=== PATIENT | female | born 1950 | race Hispanic/Latino ===

== ENCOUNTER 2019-01-18 07:00 | Inpatient (IN) | payer BC, MEDICARE ==
--- NOTE | 2019-01-16 14:10 | Anesthesia Consultation ---
Anesthesia Consult and Med Hx Date of service: 01/18/19 - Airway Anesthetic Teeth Evaluation: Good, Partials, Edentulous (upper) ROM Head & Neck: Inadequate Mental/Hyoid Distance: Adequate Mallampati Class: Class III Intubation Access Assessment: Possibly Difficult - Pre-Operative Health Status ASA Pre-Surgery Classification: ASA3 Proposed Anesthetic Plan: General, Spinal (SAB; GA if needed) Nerve Block: AC - Pulmonary Hx Smoking: Yes (STOPPED 04/18/2017) Hx Sleep Apnea: No (KEEGAN PRE SCREEN HIGH RISK) - Cardiovascular System Hx Hypertension: Yes (X 5 YRS) - Central Nervous System Hx Psychiatric Problems: Yes (Anxiety and depression) - Endocrine Hx Renal Disease: Yes - Hematic Hx Anemia: Yes (NOT RECENT) - Other Systems Hx Cancer: No - Additional Comments Anesthesia Medical History Comments: +Medical clearance. five level neck surgery. lap band. failed SAB with PKA
[~2019-01-18 07:00] MED LIST: BUPIVACAINE/PF (0.25%) 2.5 MG/ML 30 ML VIAL INFILTRATI ONE; CELECOXIB 200 MG CAP PO NR; KETOROLAC 10 MG TAB PO ONE; LACTATED RINGERS 1,000 ML ONE; MORPHINE 10 MG/1 ML INJ IM ONE; OXYCHLOROSENE 2 GM POWDER IR ONE; SODIUM CHLORIDE 0.9% 50 ML VIAL INFILTRATI ONE; ceFAZolin/STERILE WATER 2 GM/20 ML SYRINGE IV NR
[2019-01-18] MEDS: LACTATED RINGERS 1,000 ML IV SCH ×2 (07:35→22:11)
[2019-01-18] MEDS: GABAPENTIN 300 MG CAP PO NR ×4 (07:35→22:03)
[2019-01-18] MEDS ORDERED: MORPHINE 10 MG/1 ML INJ ONE (07:48)
[2019-01-18] MEDS ORDERED: SODIUM CHLORIDE 0.9% 300 ML ONE (07:49)
[2019-01-18] MEDS ORDERED: BUPIVACAINE-EPINEPHRINE/PF 0.25%-1:200,000 (30 ML) VIAL INFILTRATI ONE (07:49)
[2019-01-18] MEDS ORDERED: OXYCHLOROSENE 2 GM POWDER IR ONE ×2 (07:49→10:55)
[2019-01-18] MEDS ORDERED: BACITRACIN 50,000 UNIT VIAL ONE (07:49)
[2019-01-18] MEDS ORDERED: KETOROLAC 30 MG/1 ML INJ ONE (07:50)
[2019-01-18] MEDS ORDERED: TRANEXAMIC ACID 1,000 MG/10 ML ONE (07:51)
[2019-01-18] MEDS ORDERED: BUPIVACAINE/PF (0.25%) 2.5 MG/ML 30 ML VIAL INFILTRATI ONE ×2 (07:51→11:00)
[2019-01-18] MEDS ORDERED: POLYMYXIN B SULFATE 500,000 UNIT VIAL IV ONE ×2 (07:51→10:11)
[2019-01-18] MEDS ORDERED: SODIUM CHLORIDE P/F VIAL 10 ML 10 ML ONE (07:52)
[2019-01-18] MEDS ORDERED: LIDOCAINE MPF (2%) 20 MG/1 ML VIAL 5 ML ONE ×2 (08:10→11:48)
[2019-01-18] MEDS ORDERED: fentaNYL 100 MCG/2 ML INJ ONE (08:10)
[2019-01-18] MEDS ORDERED: MIDAZOLAM 2 MG/2 ML INJ ONE ×2 (08:10→09:05)
[2019-01-18] MEDS ORDERED: ROCURONIUM 50 MG/5 ML INJ IV ONE (08:10)
[2019-01-18] MEDS ORDERED: PROPOFOL 200 MG/20 ML VIAL IV ONE ×3 (08:11→10:50)
[2019-01-18] MEDS ORDERED: HYDROmorphone 1 MG/1 ML INJ IV PRN (08:13)
[2019-01-18] MEDS ORDERED: fentaNYL 100 MCG/2 ML INJ IV PRN (08:13)
[2019-01-18] MEDS ORDERED: ONDANSETRON 4 MG/2 ML INJ IV PRN ×2 (08:13→12:09)
--- NOTE | 2019-01-18 08:13 | Anesthesia Day of Surgery ---
Anesthesia Day of Surgery - Day of Surgery Patient Examined: Yes Patient H&P Reviewed: Yes Patient is NPO: Yes
[2019-01-18] MEDS ORDERED: EPINEPHrine/PF (1:1,000) 1 MG/1 ML INJ ONE (08:59)
[2019-01-18] MEDS ORDERED: SODIUM CHLORIDE 0.9% 100 ML IVPB IV ONE (09:22)
[2019-01-18] MEDS ORDERED: TRANEXAMIC ACID 1,000 MG/10 ML IV ONE (09:28)
[2019-01-18] MEDS ORDERED: BACITRACIN 50,000 UNIT VIAL IR ONE (10:11)
[2019-01-18] MEDS ORDERED: SODIUM CHLORIDE 0.9% IRRIG SOLN 2000 ML IR ONE (10:11)
[2019-01-18] MEDS ORDERED: SODIUM CHLORIDE 0.9% 50 ML VIAL INFILTRATI ONE (11:00)
[2019-01-18] MEDS ORDERED: MORPHINE 10 MG/1 ML INJ IM ONE (11:00)
[2019-01-18] MEDS ORDERED: KETOROLAC 10 MG TAB PO ONE (11:00)
[2019-01-18] MEDS ORDERED: PHENYLEPHRINE 10 MG/1 ML INJ SDV ONE (11:19)
[2019-01-18] MEDS ORDERED: MAGNESIUM HYDROXIDE (MOM) ORAL LIQD UDC PO PRN (12:09)
--- NOTE | 2019-01-18 13:18 | XRay Report ---
LEFT KNEE 2 VIEW(S) INDICATION / CLINICAL INFORMATION: POSTOP TKA COMPARISON: None available. FINDINGS: Knee arthroplasty has been performed with satisfactory postoperative radiograph appearance. Signer Name: Cyril Mckeon MD Signed: 01/18/2019 1:13 PM Workstation Name: [id number]
--- NOTE | 2019-01-18 13:40 | Post Anesthesia Evaluation ---
- Post Anesthesia Evaluation Patient Participated: Yes Airway Patent: Yes Stable Respiratory Function: Yes Nausea/Vomiting: No Temp > 96.8F: Yes Pain Manageable: Yes Adequeate Hydration: Yes Anesthesia Complications: No Block Receding Appropriately: Not Applicable Patient on Ventilator: No
[2019-01-18] MEDS: HYDROcodone/ACETAMINOPHEN 10-325MG TAB PO PRN (14:34)
[2019-01-18] MEDS: GABAPENTIN 300 MG CAP PO SCH ×2 (14:35→22:03)
[2019-01-18] MEDS ORDERED: MORPHINE 4 MG/1 ML INJ IV PRN ×2 (15:15→18:59)
--- NOTE | 2019-01-18 15:57 | History and Physical Report ---
History of Present Illness Date of admission: 01/18/19 07:00 Chief complaint: My knee hurts History of present illness: 68 YO Female with Obesity Hypoventilation Syndrome, HTN, Anxiety, Depression, Nicotine Dependence, DJD, Chronic Pain admitted directly at the request of Dr. Moore for surgical intervention. Pt seen and evaluated upon arrival to her room. Pt resting comfortably. Pt denies fever, chills, CP, Palpitations, NVD, Trauma, Productive cough, Skin Rash, or recent ill contacts. No reported nursing events. Past History Past Medical History: hypertension, other (Ansiety, depression, ) Past Surgical History: Other (Lap Band, Neck Surgery) Social history: single, smoking Family history: hypertension Medications and Allergies Allergies Allergy/AdvReac Type Severity Reaction Status Date / Time Sulfa (Sulfonamide Allergy Hives Verified 01/10/19 15:22 Antibiotics) Home Medications Medication Instructions Recorded Confirmed Last Taken Type Calcium Carb,Gluc/Mag Ox,Gluc 1 each PO DAILY 01/10/19 01/18/19 01/16/19 08:00 History [Calcium Magnesium Caplet] Cholecalciferol Vit D3 [Vitamin D3 1,000 unit PO QDAY 01/10/19 01/18/19 01/16/19 08:00 History 1,000 UNIT TAB] Escitalopram Oxalate [Lexapro] 20 mg PO DAILY 01/10/19 01/10/19 01/18/19 05:00 History Pravastatin [Pravachol] 20 mg PO QHS 01/10/19 01/18/19 01/18/19 05:00 History hydroCHLOROthiazide [HCTZ] 25 mg PO QDAY 01/10/19 01/10/19 01/18/19 05:00 History Meloxicam [Mobic] 15 mg PO PRN 01/18/19 01/18/19 01/16/19 08:00 History Active Meds: Active Medications Acetaminophen/Hydrocodone Bitart ([place] 10/325) 1 each PO Q4H PRN PRN Reason: Pain, Moderate (4-6) Last Admin: 01/18/19 14:34 Dose: 1 each Documented by: Apixaban (Eliquis) 2.5 mg PO Q12HR ASHLEY; Protocol Stop: 01/30/19 21:59 Cefazolin Sodium (Ancef/Sterile Water 2 Gm/20 Ml) 2 gm IV PREOP NR Stop: 01/18/19 23:59 Celecoxib (Celebrex) 200 mg PO PREOP NR Stop: 01/18/19 23:00 Last Admin: 01/18/19 07:35 Dose: 200 mg Documented by: Cholecalciferol (Vitamin D3) 1,000 unit PO QDAY [facility] Escitalopram Oxalate (Lexapro) 20 mg PO DAILY [facility] Fentanyl (Sublimaze) 50 mcg IV Q5MIN PRN PRN Reason: Pain , Severe (7-10) Stop: 01/18/19 22:00 Gabapentin (Neurontin) 300 mg PO PREOP NR Stop: 01/18/19 23:00 Last Admin: 01/18/19 07:35 Dose: 300 mg Documented by: Gabapentin (Neurontin) 300 mg PO Q8HR ASHLEY Last Admin: 01/18/19 14:35 Dose: 300 mg Documented by: Hydrochlorothiazide (Hctz) 25 mg PO QDAY [facility] Hydromorphone HCl (Dilaudid) 0.5 mg IV Q10MIN PRN PRN Reason: Pain , Severe (7-10) Stop: 01/18/19 22:00 Lactated Ringer's (Lactated Ringers) 1,000 mls @ 100 mls/hr IV DIRECT ASHLEY Last Admin: 01/18/19 07:35 Dose: 100 mls/hr Documented by: Cefazolin Sodium 2 gm/ Sodium (Chloride) 100 mls @ 200 mls/hr IV Q8H [facility]; Protocol Stop: 01/19/19 10:29 Magnesium Hydroxide (Milk Of Magnesia) 30 ml PO Q4H PRN PRN Reason: Constipation Miscellaneous Medication (Calcium Carb,Gluc/Mag Ox,Gluc [Calcium Magnesium Caplet]) 1 each PO DAILY [facility] Morphine Sulfate (Morphine) 4 mg IV Q6H PRN PRN Reason: Pain , Severe (7-10) Last Admin: 01/18/19 15:41 Dose: 4 mg Documented by: Ondansetron HCl (Zofran) 4 mg IV ONCE PRN PRN Reason: Nausea And Vomiting Ondansetron HCl (Zofran) 4 mg IV Q8H PRN PRN Reason: Nausea And Vomiting Pravastatin Sodium (Pravachol) 20 mg PO QHS [facility] Sodium Chloride (Sodium Chloride Flush Syringe 10 Ml) 10 ml IV PRN NR Stop: 01/19/19 12:59 Review of Systems Constitutional: no weight loss, no weight gain, no fever, no chills Ears, nose, mouth and throat: no ear pain, no ear discharge, no decreased hearing, no nose pain Breasts: no change in shape, no swelling, no mass Cardiovascular: no chest pain, no orthopnea, no rapid/irregular heart beat, no edema, no syncope Respiratory: no cough, no cough with sputum, no excessive sputum, no hemoptysis, no shortness of breath, no dyspnea on exertion Gastrointestinal: no abdominal pain, no nausea, no vomiting, no diarrhea, no constipation, no change in bowel habits, no hematemesis Genitourinary Female: no pelvic pain, no flank pain, no menorrhagia, no dysuria, no urinary frequency, no urgency, no stress incontinence, no post void dribbling Rectal: no pain, no incontinence, no bleeding Musculoskeletal: shooting leg pain, morning stiffness, arthritis, no neck pain, no arm numbness/tingling, no hot joints, no atrophy, no fractures Integumentary: no rash, no pruritis, no redness, no sores, no wounds Neurological: no paralysis, no weakness, no parathesias, no seizures, no syncope, no tremors Psychiatric: no anxiety, no memory loss, no hypersomnia, no suicidal ideation, no disorientation Endocrine: no cold intolerance, no heat intolerance, no polyphagia, no polydipsia, no excessive sweating Hematologic/Lymphatic: no easy bruising, no easy bleeding, no lymphadenopathy, no lymphedema Allergic/Immunologic: no urticaria, no allergic rhinitis, no wheezing, no persistent infections, no anaphylaxis Exam - Constitutional Vitals: Temp Pulse Resp BP Pulse Ox 97.9 F 72 20 134/55 97 01/18/19 13:39 01/18/19 13:39 01/18/19 13:39 01/18/19 13:39 01/18/19 13:39 General appearance: Present: mild distress - EENT Eyes: Present: PERRL ENT: hearing intact, clear oral mucosa - Neck Neck: Present: supple, normal ROM - Respiratory Respiratory effort: normal Respiratory: bilateral: CTA - Cardiovascular Heart Sounds: Present: S1 & S2. Absent: rub, click - Extremities Extremities: pulses symmetrical, No edema Peripheral Pulses: within normal limits - Abdominal General gastrointestinal: Present: soft, non-tender, non-distended, normal bowel sounds Female genitourinary: Present: normal - Integumentary Integumentary: Present: clear, warm, dry - Musculoskeletal Musculoskeletal: gait normal, strength equal bilaterally - Psychiatric Psychiatric: appropriate mood/affect, intact judgment & insight - Neurologic Neurologic: CNII-XII intact, moves all extremities Assessment and Plan - Patient Problems (1) DJD (degenerative joint disease) Current Visit: Yes Status: Acute Qualifiers: Laterality: left Plan to address problem: Ortho consulted, Surgical intervention as per ortho team, PT consulted (2) HTN (hypertension) Current Visit: Yes Status: Acute Qualifiers: Hypertension type: essential hypertension Qualified Code(s): I10 - Essential (primary) hypertension Plan to address problem: Monitor bp q shift, continue medical management. (3) Nicotine dependence unspecified, with withdrawal Current Visit: Yes Status: Acute Qualifiers: Nicotine product type: cigarettes Qualified Code(s): F17.213 - Nicotine dependence, cigarettes, with withdrawal Plan to address problem: Smoking cessation counseling, supportive care. (4) Obesity hypoventilation syndrome Current Visit: Yes Status: Acute Plan to address problem: Supplemental oxygen, nebulizer therapy, NIPPV as clinically indicated, pulse oximetry, incentive spirometry, early ambulation, pulmonary toilet. (5) DVT prophylaxis Current Visit: Yes Status: Acute Plan to address problem: SCD to BLE while in bed.
--- NOTE | 2019-01-18 16:26 | Operative Report ---
IDENTIFICATION: A 68-year-old female. PREOPERATIVE DIAGNOSIS: Severe advanced osteoarthritis of the left knee joint. POSTOPERATIVE DIAGNOSES: 1. Severe advanced osteoarthritis of the left knee joint. 2. Morbid obesity. 3. Synovial hypertrophy and synovial proliferation. PROCEDURE PERFORMED: 1. Left total knee replacement. 2. Partial synovectomy, left knee joint. COMPLICATIONS: None. BLOOD LOSS: Less than approximately 50 mL. IMPLANTS USED: Bravo [employer] Nephew Legion Oxinium femoral component, size 6 femur, tibial tray size 4, prolong Poly-S. Polyethylene liner posterior stabilized 9 mm highly cross-linked polyethylene articular insert. Patella 29 mm, 3 post 7.5 mm thick. Tibia supplemented with short 10 x 70 stubby stem from the baseplate. BRIEF HISTORY: The patient had a painful left knee arthritic left knee, failed conservative treatment, opted to undergo surgical intervention. Risks, benefit discussed, informed consent obtained, brought to the hospital for the above procedure. DETAILS OF THE OPERATIVE REPORT: The patient was taken to the operating room. After smooth spinal anesthesia, all the bony prominences were carefully padded, placed supine on the operating table. Thigh tourniquet was placed. Left knee and left lower extremity prepped and draped in sterile fashion. Leg elevated, Esmarch used and tourniquet inflated to 350 mmHg. The patient was given 2 grams Ancef half an hour before the procedure and a gram of TXA before the incision. Longitudinal incision made over anterior aspect of the knee, exposing extensive mechanism. Arthrotomy performed. Patella displaced laterally findings revealed severe advanced degenerative arthritis, tricompartmental. Subperiosteal dissection was continued around the proximal medial tibia as necessary. Soft tissue release was performed to correct the fixed angular deformity. Drill was used to open the femoral canal. Distal intramedullary femoral cutting guide was placed. Distal femur resected 5-degree valgus angle. Epicondylar access apex determined. Femoral sizing guide was placed, appropriate components selected. Anterior, posterior condyles were then resected with oscillating saw. Extramedullary tibial cutting guide was placed, proximal tibia resected perpendicular to the long axis of tibia. Lamina spreaders placed between femur and tibia. Arthritic ACL and PCL ligaments were removed. Medial and lateral meniscectomy performed. Gap balancing was then performed by doing appropriate release on the medial side. Once the gap balancing was done and equal on with 9 spacer and equal in flexion, extension, good rectangular space was achieved. Tibia was then sized prepared by tibial reaming and broach system by placing the tibial tray in proper position, proper external rotation. We also prepared for a small stubby stem on the tibia given her morbid obesity. Two offset ____ on metaphyseal bone. We then prepared for the femur box for the PS femur through Bravo and Nephew trial by reaming and punch technique. Patella was sized to a 22 mm and then prepared by patellar reaming system, prepared for three post-patella. Post-patellar thickness 22.5. Osteophytes around the patella. Synovium around the patella was removed as well. Patella tracked well. The knee was ____ with 9 poly. We had full extension, full flexion, stable throughout range of motion. No impingement, no dislocation, stable throughout range of motion. Patella tracked central throughout range of motion and stable knee throughout range of motion. Trial components were removed, thoroughly washed the knee area with antibiotic-soaked normal saline followed by normal saline. The tibia was cemented first set in proper position, proper external rotation and packed in place. Excess cement was removed. Femur was then cemented in proper position, proper external rotation and packed in place. Excess cement was removed. Trial liner was then placed, cementing the patella performed, compressed in place. Excess cement removed. Once the cement was hardened, real tibial articulating surface was implanted and locked in place. Knee again moved through range of motion and found to be extremely stable. Patella tracked central. Tourniquet released. Hemostasis achieved. No active bleeder as such. Thorough washing was performed with antibiotic-soaked normal saline followed by normal saline followed by Clorpactin irrigation and arthrotomy was closed with 0 Vicryl sutures and #2 Quill sutures combination and subcutaneous tissue was closed in layers with 0 and 2-0 Vicryl interrupted sutures. Skin was closed with Monocryl. Aquacel dressing done. Lv wrap applied, drapes applied. The patient tolerated the procedure very well, shifted to recovery room in stable condition. Sponge and needle count was correct. JOB# [id number] SK/NTS
[2019-01-18] MEDS ORDERED: oxyCODONE /ACETAMINOPHEN 5-325MG TAB PO PRN (18:59)
[2019-01-18] MEDS ORDERED: MORPHINE 2 MG/1 ML INJ IV PRN (19:33)
[2019-01-18] MEDS ORDERED: CELECOXIB 200 MG CAP PO SCH (22:00)
[2019-01-18] MEDS: PRAVASTATIN 20 MG TAB PO SCH (22:01)
[2019-01-18] MEDS: APIXABAN 2.5 MG TAB PO SCH (22:01)
[2019-01-19] MEDS: GABAPENTIN 300 MG CAP PO SCH ×3 (05:15→22:42)
[2019-01-19] MEDS: HYDROcodone/ACETAMINOPHEN 10-325MG TAB PO PRN ×4 (05:22→22:42)
[2019-01-19 06:00] LABS: Hematocrit 36.6 % (30.3-42.9); Hemoglobin 11.9 gm/dl (10.1-14.3)
[2019-01-19 06:18] LABS: Calcium 8.2 mg/dL (8.4-10.2)
--- NOTE | 2019-01-19 08:03 | Progress Note ---
Assessment and Plan Assessment and plan: 68 YO Female with Obesity Hypoventilation Syndrome, HTN, Anxiety, Depression, Nicotine Dependence, DJD, Chronic Pain admitted directly at the request of Dr. Moore for surgical intervention. Past History Past Medical History: hypertension, other (Ansiety, depression, ) DJD (degenerative joint disease) of left knee, sp TKR mgt per ortho sx HTN (hypertension) Monitor bp q shift, continue medical management. Nicotine dependence unspecified, with withdrawal Smoking cessation counseling for 11 mins, supportive care. nicotine patches prn Acute hypoxic respiratory failure hypoxia after operation, may be due to anesthesia, continue supplemental oxygen DVT prophylaxis eliquis per surgeon cont PT, dispo, home with home PT and devices History Interval history: Left knee pain is improved, expected outcome after surgery Review of systems Constitutional: No fevers, no malaise, CVS: No chest pain, no orthopnea, no pedal edema GI: No abdominal pain, no diarrhea, no vomiting, no constipation Respiratory: No shortness of breath, no wheezing, no coughing She has been hypoxic, requiring oxygen Hospitalist Physical - Constitutional Vitals: Temp Pulse Resp BP Pulse Ox 98.3 F 80 16 154/77 95 01/19/19 04:47 01/19/19 04:47 01/19/19 04:47 01/19/19 04:47 01/19/19 07:40 General appearance: Present: mild distress - EENT Eyes: Present: PERRL ENT: hearing intact - Neck Neck: Present: supple - Respiratory Respiratory effort: normal Respiratory: bilateral: CTA - Cardiovascular Rhythm: regular Heart Sounds: Present: S1 & S2 - Extremities Extremities: no ischemia - Abdominal General gastrointestinal: soft - Integumentary Integumentary: Present: clear, warm - Psychiatric Psychiatric: appropriate mood/affect, cooperative - Neurologic Neurologic: CNII-XII intact, no focal deficits Results - Labs CBC & Chem 7: 01/19/19 05:12 01/19/19 05:12 Labs: Laboratory Last Values Hgb 11.9 gm/dl (10.1-14.3) 01/19/19 05:12 Hct 36.6 % (30.3-42.9) 01/19/19 05:12 Sodium 139 mmol/L (137-145) 01/19/19 05:12 Potassium 4.8 mmol/L (3.6-5.0) 01/19/19 05:12 Chloride 100.7 mmol/L (98-107) 01/19/19 05:12 Carbon Dioxide 27 mmol/L (22-30) 01/19/19 05:12 Anion Gap 16 mmol/L 01/19/19 05:12 BUN 24 mg/dL (7-17) H 01/19/19 05:12 Creatinine 1.0 mg/dL (0.7-1.2) 01/19/19 05:12 Estimated GFR 55 ml/min 01/19/19 05:12 BUN/Creatinine Ratio 24 % 01/19/19 05:12 Glucose 117 mg/dL (65-100) H 01/19/19 05:12 Calcium 8.2 mg/dL (8.4-10.2) L 01/19/19 05:12 Blood Type A NEGATIVE 01/18/19 07:20 Antibody Screen Negative 01/18/19 07:20 Active Medications - Current Medications Current Medications: Generic Name Dose Route Start Last Admin Trade Name Freq PRN Reason Stop Dose Admin Acetaminophen/Hydrocodone Bitart 1 each 01/18/19 12:14 01/19/19 05:22 [place] 10/325 PO 1 each Q4H PRN Administration Pain, Moderate (4-6) Apixaban 2.5 mg 01/18/19 22:00 01/18/19 22:01 Eliquis PO 01/30/19 21:59 2.5 mg Q12HR ASHLEY Administration Protocol Cholecalciferol 1,000 unit 01/19/19 10:00 Vitamin D3 PO QDAY [facility] Escitalopram Oxalate 20 mg 01/19/19 10:00 Lexapro PO DAILY ASHLEY Gabapentin 300 mg 01/18/19 14:00 01/19/19 05:15 Neurontin PO 300 mg Q8HR ASHLEY Administration Hydrochlorothiazide 25 mg 01/19/19 10:00 Hctz PO QDAY ASHLEY Lactated Ringer's 1,000 mls @ 100 mls/hr 01/17/19 11:00 01/18/19 22:11 Lactated Ringers IV 100 mls/hr DIRECT ASHLEY Administration Cefazolin Sodium 2 gm/ Sodium 100 mls @ 200 mls/hr 01/18/19 18:00 01/19/19 05:17 Chloride IV 01/19/19 10:29 Infused Q8H ASHLEY Infusion Protocol Magnesium Hydroxide 30 ml 01/18/19 12:09 Milk Of Magnesia PO Q4H PRN Constipation Miscellaneous Medication 1 each 01/19/19 10:00 Calcium Carb,Gluc/Mag Ox,Gluc [Calcium Magnesium Caplet] PO DAILY [facility] Morphine Sulfate 2 mg 01/18/19 19:33 01/19/19 06:23 Morphine IV 2 mg Q6H PRN Administration Pain, Moderate (4-6) Ondansetron HCl 4 mg 01/18/19 12:09 Zofran IV Q8H PRN Nausea And Vomiting Oxycodone/Acetaminophen 1 tab 01/18/19 18:59 Percocet 5/325 PO Q6H PRN Pain, Moderate (4-6) Pravastatin Sodium 20 mg 01/18/19 22:00 01/18/19 22:01 Pravachol PO 20 mg QHS ASHLEY Administration Sodium Chloride 10 ml 01/18/19 13:00 Sodium Chloride Flush Syringe 10 Ml IV 01/19/19 12:59 PRN NR
[2019-01-19] MEDS ORDERED: CALCIUM CARB GLUC PO SCH (10:00)
[2019-01-19] MEDS ORDERED: MAG OX GLUC PO SCH (10:00)
[2019-01-19] MEDS ORDERED: NON-FORMULARY EACH (Escitalopram Oxalate [Lexapro] 20 MG) PO SCH (10:00)
[2019-01-19] MEDS: hydroCHLOROthiazide 25 MG TAB PO SCH (10:10)
[2019-01-19] MEDS: CHOLECALCIFEROL (VIT D3) 1000 UNIT TAB PO SCH (10:10)
[2019-01-19] MEDS: ESCITALOPRAM 10 MG TAB PO SCH (10:10)
[2019-01-19] MEDS ORDERED: oxyCODONE /ACETAMINOPHEN 5-325MG TAB PO PRN (10:30)
[2019-01-19] MEDS ORDERED: HYDROmorphone 1 MG/1 ML INJ IV PRN (11:00)
[2019-01-19] MEDS: APIXABAN 2.5 MG TAB PO SCH ×2 (12:40→22:42)
--- NOTE | 2019-01-19 17:26 | Progress Note ---
Subjective Date of service: 01/19/19 Interval history: pod1, s/p tka Doing well. Pain under control Leg soft NT dressing dry NVI Giles in place, patient encouraged to walk, wean off folly Continunen PT/OT DVT eliquis DC once HH arrangemnets are made and once clear by medicine and PT. Once clear DC with TKA DC instruction sheet and with Eliquis Script. Objective Vital signs: Vital Signs - 12hr 01/19/19 01/19/19 01/19/19 07:40 08:19 11:14 Temperature 97.8 F 97.7 F Pulse Rate 83 88 Respiratory 20 20 Rate Blood Pressure 118/68 135/68 O2 Sat by Pulse 95 90 84 Oximetry 01/19/19 17:00 Temperature 98.8 F Pulse Rate 85 Respiratory 22 Rate Blood Pressure 147/68 O2 Sat by Pulse 97 Oximetry - Labs CBC & BMP: 01/19/19 05:12 01/19/19 05:12 Labs: Abnormal lab results 01/19/19 Range/Units 05:12 BUN 24 H (7-17) mg/dL Glucose 117 H (65-100) mg/dL Calcium 8.2 L (8.4-10.2) mg/dL
[2019-01-19] MEDS: PRAVASTATIN 20 MG TAB PO SCH (22:42)
[2019-01-20] MEDS: GABAPENTIN 300 MG CAP PO SCH ×3 (05:50→21:43)
[2019-01-20] MEDS: HYDROcodone/ACETAMINOPHEN 10-325MG TAB PO PRN ×3 (05:50→18:38)
[2019-01-20] MEDS: ESCITALOPRAM 10 MG TAB PO SCH (09:29)
[2019-01-20] MEDS: hydroCHLOROthiazide 25 MG TAB PO SCH (09:29)
[2019-01-20] MEDS: CHOLECALCIFEROL (VIT D3) 1000 UNIT TAB PO SCH (09:46)
[2019-01-20] MEDS: APIXABAN 2.5 MG TAB PO SCH ×2 (09:47→21:43)
--- NOTE | 2019-01-20 10:44 | Progress Note ---
Assessment and Plan Assessment and plan: 68 YO Female with Obesity Hypoventilation Syndrome, HTN, Anxiety, Depression, Nicotine Dependence, DJD, Chronic Pain admitted directly at the request of Dr. Mooer for surgical intervention. Past History Past Medical History: hypertension, other (Ansiety, depression, ) DJD (degenerative joint disease) of left knee, sp TKR mgt per ortho sx HTN (hypertension) Monitor bp q shift, continue medical management. Nicotine dependence unspecified, with withdrawal Smoking cessation counseling for 11 mins, supportive care. nicotine patches prn Acute hypoxic respiratory failure hypoxia after operation, may be due to anesthesia, continue supplemental oxygen obtain cxr DVT prophylaxis eliquis per surgeon cont PT, dispo, home with home PT and devices History Interval history: Left knee pain is improved, expected outcome after surgery Review of systems Constitutional: No fevers, no malaise, CVS: No chest pain, no orthopnea, no pedal edema GI: No abdominal pain, no diarrhea, no vomiting, no constipation Respiratory: No shortness of breath, no wheezing, no coughing She has been hypoxic, requiring oxygen Hospitalist Physical - Physical exam Narrative exam: General appearance: Present: mild distress - EENT Eyes: Present: PERRL ENT: hearing intact - Neck Neck: Present: supple - Respiratory Respiratory effort: normal Respiratory: bilateral: CTA - Cardiovascular Rhythm: regular Heart Sounds: Present: S1 & S2 - Extremities Extremities: no ischemia - Abdominal General gastrointestinal: soft - Integumentary Integumentary: Present: clear, warm - Psychiatric Psychiatric: appropriate mood/affect, cooperative - Neurologic Neurologic: CNII-XII intact, no focal deficits - Constitutional Vitals: Temp Pulse Resp BP Pulse Ox 98.1 F 84 20 164/73 91 01/20/19 07:05 01/20/19 07:05 01/20/19 07:05 01/20/19 07:05 01/20/19 07:05 General appearance: Present: mild distress Results - Labs CBC & Chem 7: 01/19/19 05:12 01/19/19 05:12 Labs: Laboratory Last Values Hgb 11.9 gm/dl (10.1-14.3) 01/19/19 05:12 Hct 36.6 % (30.3-42.9) 01/19/19 05:12 Sodium 139 mmol/L (137-145) 01/19/19 05:12 Potassium 4.8 mmol/L (3.6-5.0) 01/19/19 05:12 Chloride 100.7 mmol/L (98-107) 01/19/19 05:12 Carbon Dioxide 27 mmol/L (22-30) 01/19/19 05:12 Anion Gap 16 mmol/L 01/19/19 05:12 BUN 24 mg/dL (7-17) H 01/19/19 05:12 Creatinine 1.0 mg/dL (0.7-1.2) 01/19/19 05:12 Estimated GFR 55 ml/min 01/19/19 05:12 BUN/Creatinine Ratio 24 % 01/19/19 05:12 Glucose 117 mg/dL (65-100) H 01/19/19 05:12 Calcium 8.2 mg/dL (8.4-10.2) L 01/19/19 05:12 Blood Type A NEGATIVE 01/18/19 07:20 Antibody Screen Negative 01/18/19 07:20 Active Medications - Current Medications Current Medications: Generic Name Dose Route Start Last Admin Trade Name Freq PRN Reason Stop Dose Admin Acetaminophen/Hydrocodone Bitart 1 each 01/18/19 12:14 01/20/19 09:29 [place] 10/325 PO 1 each Q4H PRN Administration Pain, Moderate (4-6) Apixaban 2.5 mg 01/18/19 22:00 01/20/19 09:47 Eliquis PO 01/30/19 21:59 2.5 mg Q12HR ASHLEY Administration Protocol Cholecalciferol 1,000 unit 01/19/19 10:00 01/20/19 09:46 Vitamin D3 PO 1,000 unit QDAY ASHLEY Administration Escitalopram Oxalate 20 mg 01/19/19 10:00 01/20/19 09:29 Lexapro PO 20 mg DAILY ASHLEY Administration Gabapentin 300 mg 01/18/19 14:00 01/20/19 05:50 Neurontin PO 300 mg Q8HR ASHLEY Administration Hydrochlorothiazide 25 mg 01/19/19 10:00 01/20/19 09:29 Hctz PO 25 mg QDAY ASHLEY Administration Hydromorphone HCl 0.5 mg 01/19/19 11:00 Dilaudid IV Q3H PRN Pain , Severe (7-10) Lactated Ringer's 1,000 mls @ 100 mls/hr 01/17/19 11:00 01/18/19 22:11 Lactated Ringers IV 100 mls/hr DIRECT ASHLEY Administration Magnesium Hydroxide 30 ml 01/18/19 12:09 Milk Of Magnesia PO Q4H PRN Constipation Miscellaneous Medication 1 each 01/19/19 10:00 Calcium Carb,Gluc/Mag Ox,Gluc [Calcium Magnesium Caplet] PO DAILY ASHLEY Ondansetron HCl 4 mg 01/18/19 12:09 Zofran IV Q8H PRN Nausea And Vomiting Oxycodone/Acetaminophen 2 tab 01/19/19 10:30 Percocet 5/325 PO Q6H PRN Pain, Moderate (4-6) Pravastatin Sodium 20 mg 01/18/19 22:00 01/19/19 22:42 Pravachol PO 20 mg QHS ASHLEY Administration
--- NOTE | 2019-01-20 16:07 | Progress Note ---
Subjective Date of service: 01/20/19 Interval history: patient lying on bed comfortably. Knee feeels good. Pain under control with meds. Calf soft NT dressing dry No redness in surrounding skin. Slow with PT as per therapist. Noticed her O 2 sstas in 90/s. Recommend Incentive spirometer . Nasal O2. Stat CXR Inform medicine wilfredo. Nurse doing it now. Patient has No CP or SOB. HR less than 90's and Afebrile Continue PT/OT DVT prophylaxsis DC plan probably rehab ? Hold off Narcotics. Tylenol for pain. [place] only for severe pain prn q8. Objective Vital signs: Vital Signs - 12hr 01/20/19 01/20/19 01/20/19 04:51 04:52 04:53 Temperature 98.9 F Pulse Rate 86 83 82 Respiratory 20 Rate Blood Pressure 138/69 O2 Sat by Pulse 91 90 89 Oximetry 01/20/19 01/20/19 04:56 07:05 Temperature 98.1 F Pulse Rate 84 Respiratory 20 Rate Blood Pressure 164/73 O2 Sat by Pulse 92 91 Oximetry - Labs CBC & BMP: 01/19/19 05:12 01/19/19 05:12
--- NOTE | 2019-01-20 17:58 | XRay Report ---
CHEST 1 VIEW INDICATION / CLINICAL INFORMATION: low O2 sats. COMPARISON: None available. FINDINGS: SUPPORT DEVICES: None. HEART / MEDIASTINUM: Cardiac size is mildly enlarged. LUNGS / PLEURA: There is minimal interstitial pulmonary edema. The lungs are otherwise clear. There i s suggestion of right hilar mass, however. This may just represent a prominent pulmonary artery, but mass is not entirely excluded. No pneumothorax. ADDITIONAL FINDINGS: No significant additional findings. IMPRESSION: 1. Questionable right hilar mass versus enlarged right pulmonary artery. Since there are no prior [facility] radiograph available for comparison, CT chest with contrast is suggested when the patient is clini chandler able. 2. Minimal interstitial pulmonary edema with mild cardiomegaly. Signer Name: Nancy Deal MD Signed: 01/20/2019 5:53 PM Workstation Name: [id number]
--- NOTE | 2019-01-20 20:12 | Cat Scan Report ---
CT CHEST WITHOUT CONTRAST INDICATION / CLINICAL INFORMATION: sob, lung mass. Abnormal chest CT with right hilar prominence TECHNIQUE: Axial CT images were obtained through the chest without contrast. All CT scans at this location are p erformed using CT dose reduction for ALARA by means of automated exposure control. COMPARISON: Chest x-ray today FINDINGS: HEART: Heart is moderately enlarged. THORACIC AORTA: Moderate vascular calcifications within nonaneurysmal thoracic aorta MEDIASTINUM and DARRON: No mediastinal or hilar adenopathy. LUNGS: Small 1 cm nodular groundglass subpleural parenchymal density image 60. Mild emphysema. No fabiana id pulmonary nodule or mass. PLEURA: No significant pleural effusion. No pneumothorax. ADDITIONAL FINDINGS: None. UPPER ABDOMEN: Gastric lap band device.. 2.7 cm hypodense left adrenal nodule with a few density of - 8 diagnostic for benign adrenal adenoma SKELETAL SYSTEM: No significant abnormality. IMPRESSION: 1. No mediastinal adenopathy or soft tissue mass to account for the prominent right hilar area on rec ent AP chest x-ray. 2. Groundglass 1 cm subpleural right lower lobe pulmonary nodule. 3. 2.7 cm left adrenal benign adenoma INCIDENTAL PULMONARY NODULE RECOMMENDATIONS Subsolid Nodule (Ground glass) >=6 mm - CT at 6-12 months to confirm persistence, then CT every 2 years until 5 years Note These recommendations do not apply to lung cancer screening, patients with immunosuppression, o r patients with known primary cancer. Note Newly detected indeterminate nodule in persons 35 years of age or older. Persons under the age of 35 should not receive follow-up unless there is a known primary cancer. Low Risk Patient -- minimal or absent history of smoking and of other known risk factors. High Risk Patient -- history of smoking or of other known risk factors. Nodule dimensions are average of long and short axes, rounded to the nearest millimeter. Based on 2017 Fleischner Society Guidelines found in Radiology 2017 284:228-243. https://[email or web address] [email or web address]/[email or web address] Signer Name: Gee Rosenthal MD Signed: 01/20/2019 8:08 PM Workstation Name: [id number]
[2019-01-20] MEDS: PRAVASTATIN 20 MG TAB PO SCH (21:44)
[2019-01-21] MEDS: HYDROcodone/ACETAMINOPHEN 10-325MG TAB PO PRN ×3 (05:20→22:23)
[2019-01-21] MEDS: GABAPENTIN 300 MG CAP PO SCH ×3 (05:20→22:19)
--- NOTE | 2019-01-21 10:36 | Discharge Summary ---
Providers - Providers Date of Admission: 01/18/19 13:55 Attending physician: DARÍO LAURENT MD 01/18/19 12:09 Consult to Case Management [CONS] Routine Services Needed at Discharge: Home Health Services DME Equipment Physical Therapy Cold [employer] Supervisor Notified:: cm notified Consult to Physician [CONS] Routine Comment: Consulting Provider: VERÓNICA IRIZARRY Physician Instructions: Reason For Exam: postop TKA medical management Occupational Therapy Evaluate and Treat [CONS] Routine Comment: Reason For Exam: POSTOP TKA 01/18/19 12:11 Physical Therapy Evaluation and Treat [CONS] Routine Comment: Reason For Exam: postop TKA 01/18/19 15:25 Consult to Anesthesiology [CONS] Routine Consulting Provider: MARIA L ANESTHESIA BRIDGETT HUBBARD Reason For Exam: pain management Primary care physician: JEFF GREEN MD Hospitalization Hospital course: 68 YO Female with Obesity Hypoventilation Syndrome, HTN, Anxiety, Depression, Nicotine Dependence, DJD, Chronic Pain admitted directly at the request of Dr. Moore for surgical intervention. 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 History of nicotine dependence Her last cigarette was 2 years ago, counseled on maintained abstinence from cigarettes greater than 10 minutes Acute hypoxic respiratory failure Hypoxia after operation was likely due to anesthesia. Patient was weaned off oxygen prior to discharge Pulmonary nodule CT chest shows Groundglass 1 cm subpleural right lower lobe pulmonary nodule. Recommend fo llow-up CT chest in 6 to 12 months, then a CT every 2 years until 5 years. DVT prophylaxis eliquis per surgeon Disposition: [id number] HOME UND[facility] Time spent for discharge: 35 minutes Core Measure Documentation - Palliative Care Palliative Care/ Comfort Measures: Not Applicable - Core Measures Any of the following diagnoses?: none Exam - Constitutional Vitals: Temp Pulse Resp BP Pulse Ox 98.7 F 83 20 151/67 94 01/21/19 07:38 01/21/19 07:38 01/21/19 07:38 01/21/19 07:38 01/21/19 07:38 General appearance: Present: no acute distress, well-nourished - EENT Eyes: Present: PERRL ENT: hearing intact, clear oral mucosa - Neck Neck: Present: supple, normal ROM - Respiratory Respiratory effort: normal Respiratory: bilateral: CTA - Cardiovascular Heart Sounds: Present: S1 & S2. Absent: rub, click - Extremities Extremities: pulses symmetrical, No edema Peripheral Pulses: within normal limits - Abdominal General gastrointestinal: Present: soft, non-tender, non-distended, normal bowel sounds Female genitourinary: Present: normal - Integumentary Integumentary: Present: clear, warm, dry - Musculoskeletal Musculoskeletal: gait normal, strength equal bilaterally - Psychiatric Psychiatric: appropriate mood/affect, intact judgment & insight - Neurologic Neurologic: CNII-XII intact, moves all extremities Plan Follow up with: JFEF GREEN MD [Primary Care Provider] - 7 Days Prescriptions: Apixaban [Eliquis] 2.5 mg PO Q12HR #60 tablet HYDROcodone/APAP 10-325 [[place] 10-325 mg TAB] 1 each PO Q6H PRN #30 tablet PRN Reason: Pain, Moderate (4-6)
[2019-01-21] MEDS: CHOLECALCIFEROL (VIT D3) 1000 UNIT TAB PO SCH (11:03)
[2019-01-21] MEDS: ESCITALOPRAM 10 MG TAB PO SCH (11:03)
[2019-01-21] MEDS: hydroCHLOROthiazide 25 MG TAB PO SCH (11:03)
[2019-01-21] MEDS: APIXABAN 2.5 MG TAB PO SCH ×2 (11:09→22:19)
[2019-01-21] MEDS: LACTATED RINGERS 1,000 ML IV SCH (19:23)
[2019-01-21] MEDS: PRAVASTATIN 20 MG TAB PO SCH (22:19)
[2019-01-22] MEDS: GABAPENTIN 300 MG CAP PO SCH (05:09)
[2019-01-22] MEDS: LACTATED RINGERS 1,000 ML IV SCH (05:10)
[2019-01-22] MEDS: APIXABAN 2.5 MG TAB PO SCH (09:14)
[2019-01-22] MEDS: hydroCHLOROthiazide 25 MG TAB PO SCH (09:14)
[2019-01-22] MEDS: CHOLECALCIFEROL (VIT D3) 1000 UNIT TAB PO SCH (09:14)
[2019-01-22] MEDS: ESCITALOPRAM 10 MG TAB PO SCH (09:14)
--- NOTE | 2019-01-22 10:58 | Progress Note ---
Assessment and Plan Assessment and plan: 68 YO Female with Obesity Hypoventilation Syndrome, HTN, Anxiety, Depression, Nicotine Dependence, DJD, Chronic Pain admitted directly at the request of Dr. Moore for surgical intervention. 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 Nicotine dependence unspecified, with withdrawal Smoking cessation counseling for 11 mins, supportive care. nicotine patches prn Acute hypoxic respiratory failure hypoxia after operation, may be due to anesthesia, continue supplemental oxygen, improving, continue incentive spirometry Pulmonary nodule CT chest shows Groundglass 1 cm subpleural right lower lobe pulmonary nodule. Recommend follow-up CT chest in 6 to 12 months, then a CT every 2 years until 5 years. DVT prophylaxis eliquis per surgeon cont PT, dispo, home with home PT and devices History Interval history: Left knee pain is improved, expected outcome after surgery Review of systems Constitutional: No fevers, no malaise, CVS: No chest pain, no orthopnea, no pedal edema GI: No abdominal pain, no diarrhea, no vomiting, no constipation Respiratory: No shortness of breath, no wheezing, no coughing She has been hypoxic, requiring oxygen Hospitalist Physical - Physical exam Narrative exam: General appearance: Present: mild distress - EENT Eyes: Present: PERRL ENT: hearing intact - Neck Neck: Present: supple - Respiratory Respiratory effort: normal Respiratory: bilateral: CTA - Cardiovascular Rhythm: regular Heart Sounds: Present: S1 & S2 - Extremities Extremities: no ischemia - Abdominal General gastrointestinal: soft - Integumentary Integumentary: Present: clear, warm - Psychiatric Psychiatric: appropriate mood/affect, cooperative - Neurologic Neurologic: CNII-XII intact, no focal deficits - Constitutional Vitals: Temp Pulse Resp BP Pulse Ox 99.0 F 86 16 161/80 94 01/22/19 07:35 01/22/19 07:35 01/22/19 08:00 01/22/19 07:35 01/22/19 07:35 General appearance: Present: no acute distress, well-nourished Results - Labs CBC & Chem 7: 01/19/19 05:12 01/19/19 05:12 Labs: Laboratory Last Values Hgb 11.9 gm/dl (10.1-14.3) 01/19/19 05:12 Hct 36.6 % (30.3-42.9) 01/19/19 05:12 Sodium 139 mmol/L (137-145) 01/19/19 05:12 Potassium 4.8 mmol/L (3.6-5.0) 01/19/19 05:12 Chloride 100.7 mmol/L (98-107) 01/19/19 05:12 Carbon Dioxide 27 mmol/L (22-30) 01/19/19 05:12 Anion Gap 16 mmol/L 01/19/19 05:12 BUN 24 mg/dL (7-17) H 01/19/19 05:12 Creatinine 1.0 mg/dL (0.7-1.2) 01/19/19 05:12 Estimated GFR 55 ml/min 01/19/19 05:12 BUN/Creatinine Ratio 24 % 01/19/19 05:12 Glucose 117 mg/dL (65-100) H 01/19/19 05:12 Calcium 8.2 mg/dL (8.4-10.2) L 01/19/19 05:12 Blood Type A NEGATIVE 01/18/19 07:20 Antibody Screen Negative 01/18/19 07:20 Active Medications - Current Medications Current Medications: Generic Name Dose Route Start Last Admin Trade Name Freq PRN Reason Stop Dose Admin Acetaminophen/Hydrocodone Bitart 1 each 01/20/19 16:08 01/21/19 22:23 [place] 10/325 PO 1 each Q6H PRN Administration Pain, Moderate (4-6) Apixaban 2.5 mg 01/18/19 22:00 01/22/19 09:14 Eliquis PO 01/30/19 21:59 2.5 mg Q12HR ASHLEY Administration Protocol Cholecalciferol 1,000 unit 01/19/19 10:00 01/22/19 09:14 Vitamin D3 PO 1,000 unit QDAY ASHLEY Administration Escitalopram Oxalate 20 mg 01/19/19 10:00 01/22/19 09:14 Lexapro PO 20 mg DAILY ASHLEY Administration Gabapentin 300 mg 01/18/19 14:00 01/22/19 05:09 Neurontin PO 300 mg Q8HR ASHLEY Administration Hydrochlorothiazide 25 mg 01/19/19 10:00 01/22/19 09:14 Hctz PO 25 mg QDAY ASHLEY Administration Lactated Ringer's 1,000 mls @ 100 mls/hr 01/17/19 11:00 01/22/19 05:10 Lactated Ringers IV 100 mls/hr DIRECT ASHLEY Administration Magnesium Hydroxide 30 ml 01/18/19 12:09 Milk Of Magnesia PO Q4H PRN Constipation Miscellaneous Medication 1 each 01/19/19 10:00 Calcium Carb,Gluc/Mag Ox,Gluc [Calcium Magnesium Caplet] PO DAILY ASHLEY Ondansetron HCl 4 mg 01/18/19 12:09 Zofran IV Q8H PRN Nausea And Vomiting Pravastatin Sodium 20 mg 01/18/19 22:00 01/21/19 22:19 Pravachol PO 20 mg QHS ASHLEY Administration
[2019-01-22] MEDS: HYDROcodone/ACETAMINOPHEN 10-325MG TAB PO PRN (11:08)
[2019-01-22 13:55] VITALS: BP 145/77
== END 2019-01-22 16:00 | disposition home health service (06) | DRG 469 ==
LOC: INTOOBSV 07:00 → 3A 07:00 → OBSVTOIN 13:55 → 3A 13:55 → 3B-SURG 14:11
PROVIDERS: ADMIT Internal Medicine; ATTEND Internal Medicine
PROC: 0SRD069 Replacement of Left Knee Joint with Oxidized Zirconium on Polyethylene Synthetic Substitute, Cemented, Open Approach (ICD-10-PCS; principal; 2019-01-18)
DX: M17.12 Unilateral primary osteoarthritis, left knee (principal); J96.01 Acute respiratory failure with hypoxia; Z68.41 Body mass index [BMI] 40.0-44.9, adult; E66.2 Morbid (severe) obesity with alveolar hypoventilation; F17.213 Nicotine dependence, cigarettes, with withdrawal; I10 Essential (primary) hypertension; F32.9 Major depressive disorder, single episode, unspecified; F41.9 Anxiety disorder, unspecified; M67.262 Synovial hypertrophy, not elsewhere classified, left lower leg; G89.29 Other chronic pain; R91.1 Solitary pulmonary nodule; Z71.6 Tobacco abuse counseling; Z82.49 Family history of ischemic heart disease and other diseases of the circulatory system; Z88.2 Allergy status to sulfonamides; Z79.899 Other long term (current) drug therapy
CPT/HCPCS: 36415; 71045; 71250; 80048; 85014; 85018; 86850; 86900; 86901; 88304; 88305; 88311; G0378; A4217; A9270-GY; C1713; C1776; G0379; J0171; J0690; J1885; J2250; J2270; J2370; J2405; J2704; J3010; J7120